=== PATIENT | male | born 1960 | race Caucasian/White ===

== ENCOUNTER 2017-10-15 15:52 | Inpatient (IN) | payer MEDICAID ==
[2017-10-15] MEDS: IOHEXOL 300MG/ML 150 ML BTL (17:05)
[2017-10-15] MEDS: SOD CHLORIDE 0.9% 100 ML (17:05)
[2017-10-15 17:06] LABS: ADD MAN DIFF? NO
[2017-10-15 17:07] LABS: WHITE BLOOD COUNT 9.4 10^3/ul (4.8-10.8)
[2017-10-15 17:07] LABS: BASOPHILS % 0.2 % (0.0-2.0); EOSINOPHILS % 0.1 % (0.0-7.0); HEMATOCRIT 42.4 % (42.0-52.0); HEMOGLOBIN 14.9 g/dl (14.0-18.0); LYMPHOCYTES # 1.5 10^3/ul (0.8-2.9); MEAN CORPUSCULAR HEMOGLOBIN 30.7 pg (29.0-33.0); MEAN CORPUSCULAR HGB CONC 35.1 g/dl (32.0-37.0); MEAN CORPUSCULAR VOLUME 87.4 fl (82.0-101.0); MONOCYTE # 1.1 10^3/ul (0.3-0.9); MONOCYTES % 11.9 % (0.0-11.0); NEUTROPHIL # 6.7 10^3/ul (1.6-7.5); NEUTROPHILS % 71.6 % (39.0-77.0); PLATELET COUNT 138 10^3/UL (140-415); RED BLOOD COUNT 4.85 10^6/ul (4.70-6.10); RED CELL DISTRIBUTION WIDTH 12.8 % (11.5-14.5)
[2017-10-15] MEDS: DEXAMETHASONE 10 MG/ML 1 ML INJ IV (17:12)
[2017-10-15] MEDS: CEFEPIME 2GM/50 ML (PMX) 50 ML IVPB (17:13)
[2017-10-15 17:25] LABS: LACTIC ACID 1.4 mmol/L (0.5-2.0)
[2017-10-15 17:26] LABS: ALANINE AMINOTRANSFERASE 42 IU/L (13-69); ALBUMIN 4.3 g/dl (3.3-4.9); ALBUMIN/GLOBULIN RATIO 1.16; ALKALINE PHOSPHATASE 77 IU/L (42-121); ANION GAP 14 (8-16); ASPARTATE AMINO TRANSFERASE 29 IU/L (15-46); BILIRUBIN,INDIRECT 2.9 mg/dl (0-1.1); BILIRUBIN,TOTAL 2.9 mg/dl (0.2-1.3); BLOOD UREA NITROGEN 9 mg/dl (7-20); CALCIUM 8.8 mg/dl (8.4-10.2); CARBON DIOXIDE 25 mmol/L (21-31); CHLORIDE 102 mmol/L (97-110); CREATININE 0.81 mg/dl (0.61-1.24); GLUCOSE 133 mg/dl (70-220); POTASSIUM 3.4 mmol/L (3.5-5.1); SODIUM 138 mmol/L (135-144)
[2017-10-15 17:31] LABS: PROTIME 14.4 Sec (11.9-14.9); PT RATIO 1.1
[2017-10-15 17:32] LABS: PARTIAL THROMBOPLASTIN TIME 29.9 Sec (25.0-35.0)
[2017-10-15] MEDS: SODIUM CHLORIDE 0.9% 1L BAG IV* (17:39)
[2017-10-15] MEDS: VANCOMYCIN 1 GM (PMX) 250 ML IVPB (18:30)
[2017-10-15 19:14] LABS: LACTIC ACID 1.2 mmol/L (0.5-2.0)
[2017-10-15] MEDS ORDERED: VANCOMYCIN IV PER PHARMACY XX (21:00)
[2017-10-15 21:52] LABS: LACTIC ACID 0.9 mmol/L (0.5-2.0)
[2017-10-15] MEDS: METHYLPREDNISOLONE 125 MG INJ IV ×3 (22:22→23:13)
[2017-10-15] MEDS: SOD CHLORIDE 0.9% 1,000 ML IV (22:23)
[2017-10-15] MEDS: AMPICILLIN/SULB 3 GM/NS (PMX) 100 ML IVPB (23:08)
[2017-10-16 01:58] LABS: AADO2 Arterial 93.1 mmHg (7.0-24.0); Allen Test ACCEPTAB; Arterial Base Excess 0 mmol/L (-3.0-3); Arterial Blood Gas Oxygen Sat 95.5 mmHG (95.0-98.0); Arterial COHb 0.8 % (0.0-3.0); Arterial Fraction of Oxyhgb 94.4 % (93.0-99.0); Arterial HCO3 24.5 mmol/L (22.0-26.0); Arterial MetHb 0.4 % (0.0-1.5); Arterial Total Hemglobin 15.6 g/dl (12.0-18.0); Arterial pCO2 39.5 mmhg (35-45); MODE NASAL CANNULA; Site Right Radial
[2017-10-16] MEDS ORDERED: GLUCOSE GEL 15 GRAM TUBE PO ×2 (03:30)
[2017-10-16] MEDS ORDERED: GLUCAGON 1 MG INJ IM (03:30)
[2017-10-16] MEDS ORDERED: DEXTROSE 50% 50 ML SYRINGE IV ×2 (03:30)
[2017-10-16] MEDS ORDERED: GLUCOSE GEL 15 GRAM TUBE BUCCAL (03:30)
[2017-10-16] MEDS: INSULIN ASPART [NOVOLOG] 3 ML PEN SC ×6 (05:00→20:56)
[2017-10-16 05:08] LABS: ADD MAN DIFF? NO
[2017-10-16 05:09] LABS: BASOPHILS % 0.1 % (0.0-2.0); HEMATOCRIT 41.7 % (42.0-52.0); HEMOGLOBIN 14.6 g/dl (14.0-18.0); LYMPHOCYTES # 0.8 10^3/ul (0.8-2.9); LYMPHOCYTES % 10.2 % (15.0-51.0); MEAN CORPUSCULAR HEMOGLOBIN 30.7 pg (29.0-33.0); MEAN CORPUSCULAR VOLUME 87.8 fl (82.0-101.0); MEAN PLATELET VOLUME 12.1 fl (7.4-10.4); MONOCYTE # 0.1 10^3/ul (0.3-0.9); MONOCYTES % 1.6 % (0.0-11.0); NEUTROPHIL # 6.7 10^3/ul (1.6-7.5); NEUTROPHILS % 87.7 % (39.0-77.0); PLATELET COUNT 139 10^3/UL (140-415); RED BLOOD COUNT 4.75 10^6/ul (4.70-6.10); RED CELL DISTRIBUTION WIDTH 12.8 % (11.5-14.5)
[2017-10-16 05:09] LABS: WHITE BLOOD COUNT 7.6 10^3/ul (4.8-10.8)
[2017-10-16 06:14] LABS: ALANINE AMINOTRANSFERASE 38 IU/L (13-69); ALBUMIN/GLOBULIN RATIO 1.11; ALKALINE PHOSPHATASE 69 IU/L (42-121); ANION GAP 12 (8-16); ASPARTATE AMINO TRANSFERASE 25 IU/L (15-46); BILIRUBIN,INDIRECT 1.9 mg/dl (0-1.1); BILIRUBIN,TOTAL 1.9 mg/dl (0.2-1.3); BLOOD UREA NITROGEN 10 mg/dl (7-20); CALCIUM 8.7 mg/dl (8.4-10.2); CARBON DIOXIDE 24 mmol/L (21-31); CHLORIDE 110 mmol/L (97-110); CREATININE 0.61 mg/dl (0.61-1.24); GLUCOSE 192 mg/dl (70-220); MAGNESIUM 1.9 mg/dl (1.7-2.5); POTASSIUM 3.7 mmol/L (3.5-5.1); SODIUM 142 mmol/L (135-144); TOTAL PROTEIN 7.6 g/dl (6.1-8.1)
[2017-10-16] MEDS: METHYLPREDNISOLONE 125 MG INJ IV ×3 (06:21→17:33)
[2017-10-16] MEDS: PANTOPRAZOLE 40 MG INJ IV (06:21)
[2017-10-16] MEDS: AMPICILLIN/SULB 3 GM/NS (PMX) 100 ML IVPB ×3 (06:21→17:33)
[2017-10-16] MEDS: SOD CHLORIDE 0.9% 1,000 ML IV (07:44)
[2017-10-16] MEDS: VANCOMYCIN 1.5 GM in SOD CHLORIDE 0.9% 250 ML IVPB (08:02)
[2017-10-16] MEDS: BENAZEPRIL 40 MG TAB PO (10:19)
[2017-10-16] MEDS: AMLODIPINE 10 MG TAB PO (10:19)
[2017-10-16] MEDS: ASPIRIN (EC) 81 MG TAB PO (10:19)
[2017-10-16] MEDS: METOPROLOL 25 MG TAB PO (10:20)
[2017-10-16 13:42] LABS: THYROID STIMULATING HORMONE 0.475 MIU/L (0.465-4.680)
[2017-10-16] MEDS: TERAZOSIN 2 MG CAP PO (20:55)
[2017-10-16] MEDS: ATORVASTATIN 10 MG TAB PO (20:55)
[2017-10-17] MEDS ORDERED: ACCU-CHEK XX ×2 (02:00)
[2017-10-17] MEDS: ACCU-CHEK XX (02:35)
[2017-10-17 05:01] LABS: ADD MAN DIFF? NO
[2017-10-17 05:12] LABS: BASOPHILS % 0.1 % (0.0-2.0); HEMATOCRIT 40.3 % (42.0-52.0); HEMOGLOBIN 13.9 g/dl (14.0-18.0); LYMPHOCYTES # 0.8 10^3/ul (0.8-2.9); LYMPHOCYTES % 6.7 % (15.0-51.0); MEAN CORPUSCULAR HEMOGLOBIN 29.9 pg (29.0-33.0); MEAN CORPUSCULAR HGB CONC 34.5 g/dl (32.0-37.0); MEAN CORPUSCULAR VOLUME 86.7 fl (82.0-101.0); MEAN PLATELET VOLUME 12.4 fl (7.4-10.4); MONOCYTE # 0.4 10^3/ul (0.3-0.9); MONOCYTES % 3.2 % (0.0-11.0); NEUTROPHIL # 10.8 10^3/ul (1.6-7.5); NEUTROPHILS % 89.5 % (39.0-77.0); PLATELET COUNT 160 10^3/UL (140-415); RED BLOOD COUNT 4.65 10^6/ul (4.70-6.10)
[2017-10-17 05:38] LABS: ALANINE AMINOTRANSFERASE 32 IU/L (13-69); ALBUMIN 3.6 g/dl (3.3-4.9); ALBUMIN/GLOBULIN RATIO 1.05; ALKALINE PHOSPHATASE 70 IU/L (42-121); ANION GAP 12 (8-16); ASPARTATE AMINO TRANSFERASE 26 IU/L (15-46); BLOOD UREA NITROGEN 17 mg/dl (7-20); CALCIUM 8.6 mg/dl (8.4-10.2); CARBON DIOXIDE 25 mmol/L (21-31); CHLORIDE 110 mmol/L (97-110); CREATININE 0.65 mg/dl (0.61-1.24); GLUCOSE 238 mg/dl (70-220); MAGNESIUM 2.2 mg/dl (1.7-2.5); POTASSIUM 3.8 mmol/L (3.5-5.1); SODIUM 143 mmol/L (135-144)
[2017-10-17 06:23] LABS: HIV 1&2 ANTIBODY NEGATIVE (NEGATIVE)
[2017-10-17 07:26] LABS: HEPATITIS C VIRAL ANTIBODY NEGATIVE (NEGATIVE)
[2017-10-17] MEDS: ASPIRIN (EC) 81 MG TAB PO (08:23)
[2017-10-17] MEDS: AMOXICILLIN/CLAV 875 MG TAB PO ×2 (08:23→20:12)
[2017-10-17] MEDS: METOPROLOL 25 MG TAB PO (08:25)
[2017-10-17] MEDS: BENAZEPRIL 40 MG TAB PO (08:25)
[2017-10-17] MEDS: AMLODIPINE 10 MG TAB PO (08:25)
[2017-10-17] MEDS: INSULIN ASPART [NOVOLOG] 3 ML PEN SC ×4 (08:29→20:10)
[2017-10-17] MEDS: ACETAMINOPHEN 325 MG TAB PO ×3 (14:14→22:40)
[2017-10-17] MEDS: ATORVASTATIN 10 MG TAB PO (20:12)
[2017-10-17] MEDS: TERAZOSIN 2 MG CAP PO (20:14)
[2017-10-18] MEDS: HYDROCODONE/APAP (5/325) TAB PO (00:42)
[2017-10-18] MEDS: ACCU-CHEK XX (01:51)
[2017-10-18] MEDS: morphine 2 MG INJ IV ×2 (01:58→05:05)
[2017-10-18] MEDS ORDERED: ACCU-CHEK XX (02:00)
[2017-10-18] MEDS: METHYLPREDNISOLONE 40 MG INJ IV (04:27)
[2017-10-18 05:23] LABS: ADD MAN DIFF? NO
[2017-10-18 05:25] LABS: WHITE BLOOD COUNT 11.1 10^3/ul (4.8-10.8)
[2017-10-18 05:25] LABS: BASOPHILS % 0.2 % (0.0-2.0); HEMATOCRIT 41.7 % (42.0-52.0); HEMOGLOBIN 14.6 g/dl (14.0-18.0); LYMPHOCYTES % 18.3 % (15.0-51.0); MEAN CORPUSCULAR HEMOGLOBIN 30.4 pg (29.0-33.0); MEAN CORPUSCULAR VOLUME 86.7 fl (82.0-101.0); MEAN PLATELET VOLUME 12.5 fl (7.4-10.4); MONOCYTES % 8.8 % (0.0-11.0); NEUTROPHILS % 71.9 % (39.0-77.0); PLATELET COUNT 143 10^3/UL (140-415); RED BLOOD COUNT 4.81 10^6/ul (4.70-6.10); RED CELL DISTRIBUTION WIDTH 13.1 % (11.5-14.5)
[2017-10-18 05:48] LABS: ALANINE AMINOTRANSFERASE 59 IU/L (13-69); ALBUMIN 3.7 g/dl (3.3-4.9); ALBUMIN/GLOBULIN RATIO 1.08; ALKALINE PHOSPHATASE 78 IU/L (42-121); ANION GAP 11 (8-16); ASPARTATE AMINO TRANSFERASE 50 IU/L (15-46); BILIRUBIN,INDIRECT 1.3 mg/dl (0-1.1); BILIRUBIN,TOTAL 1.3 mg/dl (0.2-1.3); BLOOD UREA NITROGEN 16 mg/dl (7-20); CALCIUM 8.2 mg/dl (8.4-10.2); CARBON DIOXIDE 26 mmol/L (21-31); CHLORIDE 107 mmol/L (97-110); CREATININE 0.71 mg/dl (0.61-1.24); GLUCOSE 142 mg/dl (70-220); POTASSIUM 3.2 mmol/L (3.5-5.1); SODIUM 141 mmol/L (135-144); TOTAL PROTEIN 7.1 g/dl (6.1-8.1)
[2017-10-18] MEDS: POTASSIUM CHLORIDE (SR) 20 MEQ TAB PO (09:04)
[2017-10-18] MEDS: INSULIN ASPART [NOVOLOG] 3 ML PEN SC ×2 (09:04→12:31)
[2017-10-18] MEDS: ASPIRIN (EC) 81 MG TAB PO (09:05)
[2017-10-18] MEDS: AMOXICILLIN/CLAV 875 MG TAB PO (09:05)
[2017-10-18] MEDS: AMLODIPINE 10 MG TAB PO (09:06)
[2017-10-18] MEDS: BENAZEPRIL 40 MG TAB PO (09:06)
[2017-10-18] MEDS: METOPROLOL 25 MG TAB PO (09:06)
== END 2017-10-18 13:30 | disposition home or self-care (01) | DRG 158 ==
LOC: ICU 19:21 → PP2 10-17 18:58 → FTE 15:52
DX: M27.2 Inflammatory conditions of jaws (principal); Z68.41 Body mass index [BMI] 40.0-44.9, adult; I10 Essential (primary) hypertension; E11.9 Type 2 diabetes mellitus without complications; E78.5 Hyperlipidemia, unspecified; E66.01 Morbid (severe) obesity due to excess calories; Z87.891 Personal history of nicotine dependence; G47.33 Obstructive sleep apnea (adult) (pediatric)
CPT/HCPCS: 36415; 36600; 70491; 71045; 80053; 82803; 82962; 83036; 83605; 83735; 84443; 85025; 85610; 85730; 86703; 86803; 87040; 87081; 93005; 94660; 96374; 96375; 99291-25